=== PATIENT | female | born 1985 | race Caucasian/White ===

== ENCOUNTER 2016-05-14 23:03 | Emergency (ER) | payer MEDICAID ==
[2016-05-14] MEDS ORDERED: OPTIRAY 350 100 ML VIAL HMH IV ONE (23:04)
[2016-05-14] MEDS ORDERED: SODIUM CHLORIDE 0.9% 1,000 ML ONE (23:43)
== END 2016-05-15 03:02 | disposition home or self-care (01) ==
LOC: ER 23:03
DX: R10.12 Left upper quadrant pain (principal); R10.32 Left lower quadrant pain
CPT/HCPCS: 36415; 74022; 74177; 80053; 81001; 83690; 84703; 85025; 96361; 96374